=== PATIENT | male | born 2005 | race Caucasian/White ===

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

== ENCOUNTER 2025-01-08 20:16 | Emergency (ER) | payer BC, OTHER, SELFPAY ==
[2025-01-08 20:17] VITALS: BMI 27.2
[2025-01-08 20:39] VITALS: BP 158/80; PULSE 75; RESP 20; TEMP 36.9; O2SAT 98
[2025-01-08] MEDS: TETRACAINE PF OP SOL 0.5% 4 ML DRPETTE 1 DROP RIGHT EYE (21:47)
[2025-01-08] MEDS: FLUORESCEIN SOD 1 MG STRP RIGHT EYE (21:47)
--- NOTE | 2025-01-08 21:53 | EDNOTE_ITS ---
ED Eye Problem RME/HPI General Chief complaint: Eye Problems Stated complaint: METAL IN RIGHT EYE Time Seen by Provider: 01/08/25 20:45 Arrival date/time: 01/08/25 20:16 19M with history of asthma presents to ED with possible piece of metal in R eye while patient was grinding something. Limitations: no limitations Related Data Home Medications ?Medication ?Instructions ?Recorded ?Confirmed albuterol sulfate 90 mcg/actuation 2 puff inhalation Q 6HR PRN 06/18/15 aerosol inhaler (ProAir HFA) SHORTNESS OF BREATH #0 in halations Previous Rx's ?Medication ?Instructions ?Recorded amoxicillin 875 mg-potassium 1 tab PO BID #20 tabs clavulanate 125 mg tablet doxycycline monohydrate 100 mg 100 mg PO BID #20 caps 08/25/24 capsule hydrocodone 5 mg-acetaminophen 325 1 tab PO Q6H PRN pa in #14 tabs 08/25/24 mg tablet ibuprofen 600 mg tablet 600 mg PO Q6H PRN pain #30 t abs 08/25/24 erythromycin 5 mg/gram (0.5 %) eye 0.5 inch ophthalmic (eye) BID #3.5 01/08/25 ointment grams Allergies Allergy/AdvReac Type Severity Reaction Status Date / Time No Known Allergies Allergy Verified 08/25/24 14:29 Review of Systems Review of Systems Systems Reviewed: All systems reviewed, normal except as documented Constitutional Constitutional: Reports system reviewed and no additional complaints, except as documented, Denies fever(s) and Denies headache(s) Eyes Eyes: Reports as per HPI and Reports irritation ENT Ears, Nose, Mouth, and Throat: Denies disequilibrium and Denies headache(s) Cardiovascular Cardiovascular: Reports system reviewed and no additional complaints, except as documented, Denies chest pain and Denies dyspnea Respiratory Respiratory: Reports system reviewed and no additional complaints, except as documented, Denies cough and Denies dyspnea Gastrointestinal Gastrointestinal: Reports system reviewed and no additional complaints, except as documented, Denies abdominal pain, Denies nausea and Denies vomiting Neurologic Neurologic: Reports system reviewed and no additional complaints, except as documented, Denies confusion, Denies disequilibrium and Denies headache(s) Psychiatric Psychiatric: Denies confusion Past Medical History Past Medical History CARDIAC: Negative Congestive Heart Failure RESPIRATORY: Positive Asthma; Negative Chronic Obstructive Pulmonary Disease (COPD) GENITOURINARY: Negative Renal Disease ENDOCRINE: Negative Diabetes Mellitus Type 1 or Diabetes Mellitus Type 2 Social History SMOKING STATUS: Never smoker SUBSTANCE USE: does not use ED Exam General Limitations: Present no limitations General appearance: Present alert and in no apparent distress Head Head exam: Present atraumatic Eye Eye exam: Present normal appearance, PERRL and EOMI ENT ENT exam: Present normal exam, normal oropharynx and mucous membranes moist Neck Neck exam: Present normal inspection, full ROM and trachea midline Chest Chest inspection: Present normal inspection and symmetric chest wall rise Respiratory Respiratory exam: Present normal lung sounds bilaterally Cardiovascular Cardiovascular exam: Present regular rate, normal rhythm and normal heart sounds Abdominal Exam Abdominal exam: Present soft and normal bowel sounds Extremities Exam Extremities exam: Present normal inspection and full ROM Back Exam Back exam: Present normal inspection and full ROM Neurological Exam Neurological exam: Present alert, oriented X3 and CN II-XII intact Psychiatric Psychiatric exam: Present normal affect and normal mood Skin Skin exam: Present warm, dry, intact and normal color Course Quality Measures none Orders Category Date Time Status ED Eye Irrigation ONCE Care 01/08/25 20:46 Completed Weeks Lamp to Bedside X1 Care 01/08/25 20:46 Completed Fluorescein Sodium [[id number]] Med 01/08/25 20:46 Discontinued 1 mg RIGHT EYE X1 ONE TETRACAINE Op Minerva 0.5% [Pontocaine Op Minerva 0.5%] Med 01/08/25 20:46 Discontinued 1 drop RIGHT EYE X1 ONE Vital Signs Vital signs: Vital Signs Temperature 98.5 F 01/08/25 20:39 Pulse Rate 75 01/08/25 20:39 Respiratory Rate 20 01/08/25 20:39 Blood Pressure 158/80 H 01/08/25 20:39 Pulse Oximetry (%) 98 01/08/25 20:39 Oxygen Delivery Method Room Air 01/08/25 20:39 O2 at 98% on RA and WNLs Eye MDM Narrative MDM Narrative:: 19M with history of asthma presents to ED with possible piece of metal in R eye while patient was grinding something. Physical exam reveals no obvious R eye FB. Normal pupil response and EOM. Patient is afebrile, calm, and alert. Wood's lamp exam normal. Fur Mixer and meds given. Patient data External records reviewed:: [facility] previous records Clinical information provided by:: patient Social determinants that could affect healthcare access:: none Patient has the following chronic illnesses:: asthma How is presenting disease/condition affected by chronic disease/condition?: uneffected by Evaluation data The following diagnostics were reviewed and interpreted by me:: other (specify) (none) Lab and/or radiology exams considered but not ordered:: not ordered Interpretation Summary: n/a Medications / Prescriptions Medications or Prescriptions considered but not ordered:: ordered Medication administrations:: Medication Administration History Discontinued Medications Fluorescein Sodium (Fluorescein Sod 1 Mg Strp) 1 mg RIGHT EYE X1 ONE Stop: 01/08/25 20:47 Last Admin: 01/08/25 21:47 Dose: 1 mg Documented By: Tetracaine HCl (Tetracaine Pf Op Minerva 0.5% 4 Ml Drpette) 1 drop RIGHT EYE X1 ONE Stop: 01/08/25 20:47 Last Admin: 01/08/25 21:47 Dose: 1 drop Documented By: above Consultations Consultation(s) initiated? (list below): No Diagnosis Eye Problem Differential Diagnosis: corneal abrasion, conjunctivitis, acute iritis, hyphema, periorbital cellulitis, subconjunctival hemorrhage, glaucoma, corneal ulcer, ruptured globe and other (FB eye, eye irritation) Most likely diagnosis given after review of the tests above:: eye irritation Admission Indicated Admission indicated?: not indicated Admission Request Was there a request for admission?: No Disposition Plan Disposition Plan: Discharge Discharge Attestation Discharge Attestation: The patient and all family members were given an opportunity to ask questions and understood the discharge instructions. Discharge instructions specifically effects, indications for sooner follow up or return to the emergency department, and the expected course of current diagnosis. Patient condition: Stable Discharge Plan Plan Patient Disposition: HOME (Self Care) Disposition Comment: Stable Prescriptions/Referrals Prescriptions/Med Rec: New erythromycin 5 mg/gram (0.5 %) ointment 0.5 inch ophthalmic (eye) BID Qty: 3.5 0RF No Action albuterol sulfate [ProAir HFA] 8.5 GM HFA aerosol inhaler 2 puff Inhalation Q6HR PRN (Reason: SHORTNESS OF BREATH) Qty: 0 doxycycline monohydrate 100 mg capsule 100 mg PO BID Qty: 20 0RF amoxicillin-pot clavulanate 875-125 mg tablet 1 tab PO BID Qty: 20 0RF ibuprofen 600 mg tablet 600 mg PO Q6H PRN (Reason: pain) Qty: 30 0RF hydrocodone-acetaminophen 5-325 mg tablet 1 tab PO Q6H MDD 9 PRN (Reason: pain) Qty: 14 0RF Referrals: No Primary/Family,Physician [Primary Care Provider] - In 1 week Problem List Clinical Impression: Eye irritation Patient/Caregiver Discharge Instructions Education Materials: How the Eye Works Additional Instructions: Please follow-up with PCP within 24-48 hours and return immediately if symptoms worsen. See eye doctor in the next few days. Print Language: Pashto Stand Alone Forms: Patient Portal Info Letter PA/CLINICAL CARE COORDINATOR Supervising Physician PA/CLINICAL CARE COORDINATOR Supervising Physician: Dr. Guillen
== END 2025-01-08 22:20 | disposition home or self-care (01) ==
PROVIDERS: Emergency Provider Emergency Medicine
DX: H57.89 Other specified disorders of eye and adnexa (principal); J45.909 Unspecified asthma, uncomplicated
CPT/HCPCS: 99283